=== PATIENT | male | born 1995 | race Caucasian/White ===

== ENCOUNTER → 2019-12-02 09:05 | Outpatient (CLI) | payer OTHER, SELFPAY ==
[2019-12-03 13:22] LABS: COVID19 Sendout Not Detected (Not Detect)
== END ==
PROVIDERS: Visit Provider Nurse Practitioner
DX: Z11.59 Encounter for screening for other viral diseases (principal)
CPT/HCPCS: 87635

== ENCOUNTER → 2019-12-04 08:47 | Outpatient (CLI) | payer OTHER, SELFPAY ==
[2019-12-04 09:20] LABS: Add Manual Diff / Slide Review NO; Basophils Absolute Auto 0 /uL (0-100); Basophils Percent Auto 0.7 % (0-2); Eosinophils Absolute Auto 100 /uL (0-450); Eosinophils Percent Auto 1.6 % (2-4); Hematocrit 44.1 % (41-53); Hemoglobin 14.7 g/dL (13.5-17.5); Lymphocytes Absolute Auto 2500 /uL (1100-4500); Lymphocytes Percent Auto 38.3 % (25-40); Mean Corpuscular HGB Conc 33.3 % (30-36); Mean Corpuscular Hemoglobin 28.4 PG (26-34); Mean Corpuscular Volume 85.3 fL (80-100); Monocytes Absolute Auto 600 /uL (0-900); Monocytes Percent Auto 8.7 % (3-14); Neutrophils Absolute Auto 3300 /uL (1500-7000); Neutrophils Percent Auto 50.7 % (50-75); Platelet Count 310 X10^3/uL (150-400); Red Blood Cell Count 5.17 X10^6/uL (4.5-5.9); Red Cell Distribution Width 14.2 % (11.6-14.8); White Blood Cell Count 6.5 X10^3/uL (4.5-11.0)
[2019-12-04 09:33] LABS: BUN Creatinine Ratio 15.7 (6-22); Blood Urea Nitrogen 16 mg/dL (9-20); Calcium 9.8 mg/dL (8.4-10.2); Carbon Dioxide 30 mmol/L (22-32); Chloride 101 mmol/L (98-107); Estimated Glomerular Filt Rate > 60.0 mL/min (>60); Glucose 97 mg/dL (70-100); HEMOLYSIS < 15 (0-50); Potassium 4.8 mmol/L (3.4-5.1); Sodium 140 mmol/L (137-145)
== END ==
PROVIDERS: Referring Provider Orthopaedic Surgery Orthopaedic Surgery of the Spine; Visit Provider Orthopaedic Surgery Orthopaedic Surgery of the Spine
DX: Z01.818 Encounter for other preprocedural examination (principal); Z01.812 Encounter for preprocedural laboratory examination
CPT/HCPCS: 36415; 80048; 85025; 93005; 93010

== ENCOUNTER 2019-12-05 12:58 | Day surgery (SDC) | payer OTHER, SELFPAY ==
[2019-12-03 10:28] VITALS: BMI 26.5
--- NOTE | 2019-12-05 | DI.RAD.S_ITS ---
PROCEDURE: XR LUMBAR SPINE 2-3V INDICATIONS: L5-S1 MICRODISCECTOMY TECHNIQUE: To views of the lumbar spine were acquired. COMPARISON: None. FINDINGS: Bones: Access port is in place for right-sided laminotomy/micro discectomy procedure superimposed on the posterior elements of L5-S1. Soft tissues: Overlying bowel gas pattern is normal. No suspicious soft tissue calcifications. IMPRESSION: Port positioning for right-sided L5-S1 microdiscectomy. Dictated by: Alonso Thakkar M.D. on 12/05/2019 at 17:41 Approved by: Alonso Thakkar M.D. on 12/05/2019 at 17:42
[2019-12-05 13:21] VITALS: BP 128/84; PULSE 74; RESP 16; TEMP 36.2; O2SAT 100; BMI 27.8
[2019-12-05] MEDS: LACTATED RINGERS 1,000 ML 42 ML IV (13:36)
--- NOTE | 2019-12-05 14:43 | PM.PREOP ---
Pre-operative Note COVID-19 COVID-19 status: Negative Result date/Date tested (Pos, Neg/Pending): 12/03/19 Interval Note History & Physical reviewed/Exam performed by Physician: Yes Changes to H&P: No
--- NOTE | 2019-12-05 15:49 | SUR.OPER ---
Prone on spine table, head in foam head support, padded chest and pelvic supports, gel pad at knees, lower legs supported by pillows; nipples, genitalia and toes free of pressure, arms secured on foam padded arm boards at <90 degrees abduction. Tape over blanket at thigh secured to table.
[2019-12-05] MEDS: BUPIVACAINE 0.25% W/ EPI 30 ML VIAL INJ (15:55)
[2019-12-05] MEDS: methylPREDNISolone acet DEPO 40 MG/ML VIAL INJ (15:56)
--- NOTE | 2019-12-05 16:28 | P.OP_ITS ---
Operative Date/Time/Diagnoses Date of procedure: 12/05/19 Time of procedure: 15:28 Pre-op diagnosis: 1. L5-S1 disc herniation 2. Lumbar radiculopathy Post-op diagnosis: same Procedure & Clinicians Procedure: 1. L5-S1 right microdiscectomy 2. Utilization of microsurgical technique and operating microscope Same procedure as scheduled: Yes Indications: Patient has been having chronic back pain and worsening lumbar radiculopathy. Patient failed multiple conservative management with worsening pain weakness and numbness in her lower extremity. Patient has been having difficulty performing activity of daily living. After discussing risks benefits of treatment options, patient elected proceed with surgery. Surgeon: Sonny Mullins Commercial Intelligence Manager: Leah Howell Click Yes if Unassisted: No Anesthesia Type: General Operative Notes Closure Type: primary Specimen(s): none sent Estimated Blood Loss (mL): 10 Blood products transfused: none Procedure in detail: Patient was seen in the preoperative area. Risks and benefits of the surgery was discussed with the patient. Informed consent was obtained from the patient and placed in the chart. Surgical site was marked. Patient was taken to the operative room. General anesthesia was administered. Prophylactic antibiotic was given to the patient less than 30 min before the incision was made. Patient was placed into a prone position on the Fam table. Patient's back was then prepped and draped in the sterile fashion. Time- out was performed at this time. Using AP and lateral C-arm imaging the interval between L5-S1 was identified and marked on patient's back. A 1 inch incision 1 in from midline was made on the right side. The fascia was incised in line with skin incision. Globus MARS retractors was placed inside the incision and docked onto the L5 lamina. Using microsurgical technique and operating microscope, a L5-S1 laminotomy was performed using a Kerrison rongeur. Liagamentum flavum was resected at the site of the laminotomy. The disc space at L5-S1 was identified. Microdiscectomy was performed by incising the annulus with #11 blade. Microcurettes and pituitary was used to removed herniated disc fragments of disc from the epidural space. Fusion was found have a large extruded disc fragment which was removed in its entirety using the micropituitary. After the microdiskectomy was completed, the area medial lateral superior and inferior to the area of the microdiskectomy was inspected and explored using a micro curette. No other impinging structure was identified. The wound was then irrigated with sterile normal saline. 40 mg Depo-Medrol was placed into the epidural space. The deep fascia was closed with 1-0 Vicryl. The subcutaneous tissue was closed with 2-0 Vicryl. The skin was closed with skin vic. Patient tolerated the procedure well. There were no complications. Patient was transferred recovery room in stable condition. Complications: none Post-operative Condition: stable Disposition: PACU Plan for aftercare: Discharge to home
[2019-12-05 16:45] VITALS: BP 122/83; PULSE 74; RESP 16; TEMP 36.4; O2SAT 99
[2019-12-05 16:50] VITALS: BP 131/90; PULSE 72; RESP 11; O2SAT 99
[2019-12-05 16:55] VITALS: BP 127/87; PULSE 72; RESP 11; O2SAT 98
[2019-12-05] MEDS: ONDANSETRON 4 MG/2 ML INJ IV (16:56)
[2019-12-05] MEDS: ACETAMINOPHEN 325 MG TABLET 975 MG PO (16:56)
[2019-12-05] MEDS: OXYCODONE IR 5 MG TABLET PO (16:56)
[2019-12-05 17:05] VITALS: BP 131/94; PULSE 72; RESP 16; O2SAT 98
== END 2019-12-05 17:23 | disposition home or self-care (01) ==
PROVIDERS: Visit Provider Orthopaedic Surgery Orthopaedic Surgery of the Spine
PROC: (CPT 63030; principal; 2019-12-05 14:45)
DX: M51.16 Intervertebral disc disorders with radiculopathy, lumbar region (principal)
CPT/HCPCS: 63030; 72100; 76000; J1030; J1100; J2250; J2405; J2704; J3010